=== PATIENT | male | born 1990 | race African-American/Black ===

== ENCOUNTER 2018-09-19 13:36 | Emergency (ER) | payer OTHER ==
[2018-09-19] MEDS: methylPREDNISolone INJ 125 MG/2 ML VIAL (J2930) IV (14:00)
[2018-09-19] MEDS: diphenhydrAMINE INJ 50MG/ML VIAL (J1200) IV (14:00)
[2018-09-19] MEDS: FAMOTIDINE IV BAG 20 MG in APPROPRIATE DILUENT 1 EA IV (14:00)
[2018-09-19] MEDS: ONDANSETRON 4MG/2ML VIAL (J2405) IV (14:04)
[2018-09-19] MEDS: ALBUTEROL SULFATE 2.5 MG/0.5 ML INH NEB SOLN INH (14:10)
== END 2018-09-19 16:49 | disposition home or self-care (01) ==
LOC: M ED 13:36
DX: R22.1 Localized swelling, mass and lump, neck (principal); T61.781A Other shellfish poisoning, accidental (unintentional), initial encounter; Y92.9 Unspecified place or not applicable; Y93.9 Activity, unspecified; Z91.010 Allergy to peanuts
CPT/HCPCS: J1200

== ENCOUNTER 2018-12-06 17:43 | Inpatient (IN) | payer OTHER ==
[~2018-12-06] VITALS: Ht 180.3 cm; Wt 83.9 kg
[~2018-12-06 17:43] MED LIST: BENA25CA4 PO; FAMO40TA3 PO; MEDR4PAK PO; ZOFR4TAB14 PO
[2018-12-06] MEDS ORDERED: ESZO1TAB4 (17:47)
[2018-12-06] MEDS ORDERED: MELA3TAB PO (17:47)
[2018-12-06 18:28] LABS: HEMATOCRIT 45.9 % (42.0-52.0); HEMOGLOBIN 15.2 g/dl (13.5-17.5); MEAN CORPUSCULAR HEMOGLOBIN 26.9 pg (27.0-33.0); MEAN CORPUSCULAR HGB CONC 33.1 g/dl (32.0-36.5); MEAN CORPUSCULAR VOLUME 81.2 fl (80.0-96.0); PLATELET COUNT, AUTOMATED 268 10^3/uL (150-450); RED BLOOD COUNT 5.65 10^6/uL (4.30-6.10)
[2018-12-06 19:09] LABS: ACETAMINOPHEN LEVEL < 2.0 UG/ML (10.0-30.0); ALBUMIN 4.2 GM/DL (3.2-5.2); ALT/SGPT 43 U/L (12-78); BILIRUBIN,DIRECT < 0.1 MG/DL (0.0-0.2); BILIRUBIN,TOTAL 0.2 MG/DL (0.2-1.0); BLOOD UREA NITROGEN 18 MG/DL (7-18); CALCIUM LEVEL 9.1 MG/DL (8.5-10.1); CARBON DIOXIDE LEVEL 31 MEQ/L (21-32); CHLORIDE LEVEL 104 MEQ/L (98-107); CREATININE FOR GFR 0.98 MG/DL (0.70-1.30); ETHYL ALCOHOL (ETHANOL) < 0.003 % (0.000-0.010); GLOMERULAR FILTRATION RATE > 60.0 (>60); GLUCOSE, FASTING 63 MG/DL (70-100); SALICYLATE LEVEL < 1.7 MG/DL (5.0-30.0); SODIUM LEVEL 140 MEQ/L (136-145)
[2018-12-06 19:16] LABS: AMPHETAMINES LEVEL URINE NEGATIVE (NEGATIVE); BARBITURATES URINE NEGATIVE (NEGATIVE); BENZODIAZEPINES URINE NEGATIVE (NEGATIVE); CANNABINOIDS URINE NEGATIVE (NEGATIVE); COCAINE METABOLITE URINE NEGATIVE (NEGATIVE); METHADONE URINE NEGATIVE (NEGATIVE); OPIATES URINE NEGATIVE (NEGATIVE); PHENCYCLIDINE URINE NEGATIVE (NEGATIVE)
[2018-12-06] MEDS ORDERED: ACETAMINOPHEN TAB 650MG DOSE (2X325MG) PO PRN (22:00)
[2018-12-06] MEDS ORDERED: traZODone 50 MG TAB PO PRN (22:00)
[2018-12-06] MEDS ORDERED: MAALOX 30 ML SUSP *UDC PO PRN (22:00)
[2018-12-06] MEDS ORDERED: MOM 30ML SUSPENSION UDC PO PRN (22:00)
[2018-12-06 23:02] VITALS: BP 129/83
[2018-12-07 06:37] VITALS: BP 122/59
--- NOTE | 2018-12-07 09:05 | HPEPDOC ---
[facility] Medical History & Physical Date of Admission Dec 06, 2018 History and Physical PCP: Alisa FELIZC ATTENDING: Dr. Jaqui Choen HPI: 28 yo M admitted to COUNTS INCLUDE 234 BEDS AT THE [facility] for unspecified depressive disorder, being medically examined today. No acute medical complaints today. Denies any fevers, chills, weakness, fatigue, KEENAN, CP, SOB, cough, palpitations, abdominal pain, N/V/D or changes in bowel or bladder habits. 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 ROS: As noted in HPI, otherwise 11pt ROS of systems reviewed and unremarkable. PE: GEN: 28 yo M, appears stated age. Well-nourished, well developed. No acute distress. Alert and oriented x 3. Pleasant, interactive. HEENT: Normocephalic, atraumatic. Pupils are equal, round, and reactive to light. Extraocular movements are intact. No nystagmus appreciated. Sclera are nonicteric. Conjunctiva without injection. Nose midline. Nasal turbinates without bogginess. EACs both patent BL. TMs both visualized and bender with good cone of light, no bulging or erythema. No facial asymmetry. Moist mucous membranes. Dentition fair. Pharynx pink and moist, no cobblestoning. Neck supple, trachea midline. No lymphadenopathy or thyromegaly appreciated. CHEST: Regular rate and rhythm, +S1, +S2 LUNGS: Clear to auscultation bilaterally. No wheezes, rales, or rhonchi. Br eathing appears symmetric and easy. Patient is speaking in full sentences. No accessory muscle use. ABD: Round, soft, non-tender, non-distended. +Bowel sounds throughout. No rebound or guarding. No costovertebral angle tenderness. EXT: Pulses 2+ bilaterally dorsalis pedis and radial. No lower extremity edema appreciated. SKIN: [place], dry, warm. Capillary refill <2sec. No rashes. NEURO: Alert and oriented x 3. Cranial nerves III-XII are intact. No focal deficits appreciated. EKG: Pending A&P: 28 yo M admitted to COUNTS INCLUDE 234 BEDS AT THE [facility] for unspecified depressive disorder 1. Psych. Plan per Psychiatry. Obtain baseline EKG to assure the safety of psychiatric medications as they can prolong the QT interval. 2. Arrange follow up with PCP at discharge. 3. Staff member Jaziel present throughout exam. Vital Signs Vital Signs Date Time Temp Pulse Resp B/P (MAP) Pulse Ox O2 Delivery O2 Flow Rate FiO2 12/07/18 06:37 97.4 73 16 122/59 (80) 12/06/18 23:02 100 Room Air Laboratory Data Labs 24H Laboratory Tests 2 12/06/18 18:18: Nucleated Red Blood Cells % (auto) 0.0, Anion Gap 5L, Glomerular Filtration Rate > 60.0, Calcium Level 9.1, Aspartate Amino Transf (AST/SGOT) 17, Alanine Aminotransferase (ALT/SGPT) 43, Alkaline Phosphatase 58, Total Bilirubin 0.2, Direct Bilirubin < 0.1, Total Protein 8.0, Albumin 4.2, Albumin/Globulin Ratio 1.11, Thyroid Stimulating Hormone (TSH) 1.450, Salicylates Level < 1.7L, Acetaminophen Level < 2.0L, Ethyl Alcohol Level < 0.003 12/06/18 18:23: Urine Amphetamines Screen NEGATIVE, Urine Benzodiazepines Screen NEGATIVE, Urine Opiates Screen NEGATIVE, Urine Methadone Screen NEGATIVE, Urine Barbiturates Screen NEGATIVE, Urine Phencyclidine Screen NEGATIVE, Urine Cocaine Metabolite Screen NEGATIVE, Urine Cannabinoids Screen NEGATIVE 12/06/18 21:09: Bedside Glucose (Misc Panel) 93 CBC/BMP Laboratory Tests 12/06/18 18:18 Red Blood Count 5.65, Mean Corpuscular Volume 81.2, Mean Corpuscular Hemoglobin 26.9 L, Mean Corpuscular Hemoglobin Concent 33.1, Red Cell Distribution Width 13.6 Home Medications Scheduled Melatonin (Melatonin) 3 Mg Tab, 3 MG PO QHS for Allergies Coded Allergies: Peanut (Verified Allergy, Unknown, bety, 09/19/18) Nadira Mcdonough Dec 07, 2018 09:05
[2018-12-07] MEDS ORDERED: SERTRALINE HCL 50 MG TAB PO ONE (14:00)
--- NOTE | 2018-12-07 14:19 | MHHPEPDOC ---
General Date Of Admission: Dec 06, 2018 Legal Status: 9.39 Chief Complaint "My depression starts late at night around 5-6 during the weekends and late at night during the weekdays. 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 PT states since his return his mother had been saying he was more intisocail and that he will often stare off. PT states that he will find himself staring off when he stops at stops signs, during work or at other inconvenient times. He has begun to having short term memory issues and it has been affecting his work. PT states his command has made him work with [facility] for two months but he has not found it beneficial. 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 PT has been experiencing thoughts of not wanting to wake up or not wanting to be alive but denied that he has active SI until a month ago and now he will have thoughts of overdosing. Although he feels he would not act on the thoughts he admits they are progressing and that "the moments I have can be strong" but that in between the moments he feels alright. When the moments occur he feels they are random and can occur anywhere including when he is at work and he will immediate leave the area he is in to be alone and get refocused. PT states he has had terribel sleep since deployment and that although he doesn't remember his dreams he will often wake up sweaty and feeling afraid. PT feels his deployment was fine but then talks of hearing gun fire daily. PT has a significant other in [facility] and they share a 4 month old child. When asked if he experienced flashbacks or hallucinations he speaks of disassociating. 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 class is Prasanna [phone]" Psychiatric Review of Systems Depression (2 or more weeks): depressed mood, anhedonia, insomnia/hypersomnia, feelings of excess/guilt, feelings of worthlesness, decreased energy, difficulty concentrating, appetite changes (Increased), psychomotor changes, suicidal thoughts (Patient reports he has had [id number] thoughts for a couple of years, since he was deployed to [facility]) Divina (4 or more days of): denies Psychosis: denies PTSD: denies Anxiety: gen/non-specific anxiety Anxiety/ 6 months or more of: restlessness, keyed up, easily fatigued, difficulty concentrating, irritability, muscle tension, sleep disturbance Past Psychiatric History Previous Psychiatric Diagnosis: Major Depressive Disorder Previous Psychiatric Admissions: Denies Suicide Attempts: Denies Psychiatric Follow-up: [facility], has an appt on the and another one on the Psychiatric medications: Denies Past Medical History Medical Problems Denies Head Injury: No Seizures: No Hospitalizations: No Surgeries: No Family Medical/Psychiatric HX Medical Problems Denies Psychiatric Disorders: No Addiction: No Suicide Attemps/Completions: No Addiction History alcohol (occasionally) Social History Childhood: "It was fun". He says he grwew up with both parents. he has siblings. He was the second of four children. He enjoyed going to school, denies being bullied, he enjoyed sports. 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 Legal: Denies Marital: Single, has one child, a little girl, 2 months old. He is in touch with the baby's mother. Mental Status Examination General Appearance: well groomed, appears stated age, hospital scubs/clothing Build: average Demeanor: average Eye Contact: average Activity: average Behavior: cooperative Speech: clear, spontaneous, reg/rate,rhythm,volume Mood: depressed Affect: constricted, congruent Thought Process: logical/linear Thought Content (Delusions): none reported Thought Content (Other): none reported Thought Content (Aggressive): none reported Perception (Hallucinations): none reported Perception (Other): none reported Cognition (Impairment of): attention/concentration Cognition(Intelligence Est.): average Oriented: Awake, Alert, Oriented times three Insight: fair Judgment: Fair Psychosis: Denies Diagnoses 1. Major Depressive Disorder, recurrent 2. R/O FRANK Assessment Pt. is cooperative but guarded at the same time, he denies trauma related symptoms but he reports he has been feeling depressed since he came back from [facility], where he was deployed Initial Treatment Plan 1. Patient was admitted on a 9.39 status. 2. Complete history was obtained. 3. With patients permission, family will be contacted and database will be expanded. 4. Patients medication regimen will be reviewed and changed accordingly. 5. Patient will be provided with protected environment. 6. Patient will be treated with individual, group, and milieu therapies. 7. Patient will receive supportive psych-education. 8. Discharge planning will commence immediately. 9. Outpatient follow-up treatment will be strongly recommended. 10. The initial treatment plan will focus initially on: * Depression. * anxiety * Risk for suicide. ESTIMATED LENGTH OF STAY: 5-7 DAYS. TIME SPENT COUNSELING AND COORDINATING INITIAL CARE: 45 minutes. Vital Signs Vital Signs Date Time Temp Pulse Resp B/P (MAP) Pulse Ox O2 Delivery O2 Flow Rate FiO2 12/07/18 06:37 97.4 73 16 122/59 (80) 12/06/18 23:02 100 Room Air Laboratory Data 24H Labs Laboratory Tests 2 12/06/18 18:18: Nucleated Red Blood Cells % (auto) 0.0, Anion Gap 5L, Glomerular Filtration Rate > 60.0, Calcium Level 9.1, Aspartate Amino Transf (AST/SGOT) 17, Alanine Aminot ransferase (ALT/SGPT) 43, Alkaline Phosphatase 58, Total Bilirubin 0.2, Direct Bilirubin < 0.1, Total Protein 8.0, Albumin 4.2, Albumin/Globulin Ratio 1.11, Thyroid Stimulating Hormone (TSH) 1.450, Salicylates Level < 1.7L, Acetaminophen Level < 2.0L, Ethyl Alcohol Level < 0.003 12/06/18 18:23: Urine Amphetamines Screen NEGATIVE, Urine Benzodiazepines Screen NEGATIVE, Urine Opiates Screen NEGATIVE, Urine Methadone Screen NEGATIVE, Urine Barbiturates Screen NEGATIVE, Urine Phencyclidine Screen NEGATIVE, Urine Cocaine Metabolite Screen NEGATIVE, Urine Cannabinoids Screen NEGATIVE 12/06/18 21:09: Bedside Glucose (Misc Panel) 93 CBC/BMP Laboratory Tests 12/06/18 18:18 Red Blood Count 5.65, Mean Corpuscular Volume 81.2, Mean Corpuscular Hemoglobin 26.9 L, Mean Corpuscular Hemoglobin Concent 33.1, Red Cell Distribution Width 13.6 Medications Scheduled Melatonin (Melatonin) 3 Mg Tab, 3 MG PO QHS for , (Reported) Allergies Coded Allergies: Peanut (Verified Allergy, Unknown, bety, 09/19/18) RIGOBERTO ABAD MD Dec 07, 2018 13:56
[2018-12-07 18:00] VITALS: BP 126/89
--- NOTE | 2018-12-07 20:40 | ECGEPIP ---
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 Nonspecific ST abnormalities. No prior ECG available for comparison at the time of interpretation. Electronically Signed On 12-07-2018 20:40:41 EST by Sahil Barros
[2018-12-07] MEDS ORDERED: QUEtiapine FUMARATE 25 MG TAB PO SCH (21:00)
[2018-12-08 06:28] VITALS: BP 130/86
[2018-12-08] MEDS ORDERED: SERTRALINE HCL 50 MG TAB PO SCH (09:00)
[2018-12-08] MEDS ORDERED: QUET1TAB7 PO (12:28)
[2018-12-08] MEDS ORDERED: SERT50TA PO (12:28)
--- NOTE | 2018-12-08 16:56 | MHDSPDOC ---
[facility] Discharge Summary Discharge Summary DATE OF ADMISSION: Dec 06, 2018 at 21:47 DATE OF DISCHARGE: Dec 08, 2018 at 13:15 DISCHARGE DIAGNOSES: 1. Major Depressive Disorder, recurrent 2. R/O FRANK REASON FOR ADMISSION: Chief Complaint "My depression starts late at night around 5-6 during the weekends and late at night during the weekdays. 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 PT states since his return his mother had been saying he was more intisocail and that he will often stare off. PT states that he will find himself staring off when he stops at stops signs, during work or at other inconvenient times. He has begun to having short term memory issues and it has been affecting his work. PT states his command has made him work with [facility] for two months but he has not found it beneficial. 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 PT has been experiencing thoughts of not wanting to wake up or not wanting to be alive but denied that he has active SI until a month ago and now he will have thoughts of overdosing. Although he feels he would not act on the thoughts he admits they are progressing and that "the moments I have can be strong" but that in between the moments he feels alright. When the moments occur he feels they are random an d can occur anywhere including when he is at work and he will immediate leave the area he is in to be alone and get refocused. PT states he has had terribel sleep since deployment and that although he doesn't remember his dreams he will often wake up sweaty and feeling afraid. PT feels his deployment was fine but then talks of hearing gun fire daily. PT has a significant other in [facility] and they share a 4 month old child. When asked if he experienced flashbacks or hallucinations he speaks of disassociating. PT's command is [employer] 1st class is Prasanna [phone]" CONSULTANTS INVOLVED: None TREATMENT AND PROGRESS ON THE UNIT : Patient was pleasant and cooperative. he didn't deny feeling depressed but he said he was not suicidal. 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 Patient dates his symptoms since he came back fro his deployment to [facility], even when he denies PTSD symptoms. Patient agreed to take medications and he denied medications side effects. patient was gal orientated, he says he has his baby girl, a 2 month old girl that he says, is his life and he would never hurt himself because he wants to live to see her grow HOSPITAL COURSE: As above DISCHARGE ASSESSMENT: Patient was not homicidal, not suicidal and not psychotic at the time of his discharge. MENTAL STATUS EXAMINATION ON DISCHARGE: General Appearance: well groomed, appears stated age, hospital scubs/clothing Build: average Demeanor: average Eye Contact: average Activity: average Behavior: cooperative Speech: clear, spontaneous, reg/rate,rhythm,volume Mood: sad Affect: constricted, congruent Thought Process: logical/linear Thought Content (Delusions): none reported Thought Content (Other): Denies SI/HI, denies thought delusions and denies AV hallucinations Thought Content (Aggressive): none reported Perception (Hallucinations): none reported Perception (Other): none reported Cognition (Impairment of): attention/concentration Cognition(Intelligence Est.): average Oriented: Awake, Alert, Oriented times three Insight: improved Judgment: improved Psychosis: Denies Diagnoses 1. Major Depressive Disorder, recurrent 2. R/O FRANK MEDICATIONS ON DISCHARGE: Scheduled Quetiapine Fumerate (Quetiapine Fumarate) 25 Mg Tab, 75 MG PO QHS for insomnia, #21 Sertraline Hcl (Sertraline HCl) 50 Mg Tab, 50 MG PO QAM for depression, #7 PLAN/FOLLOWUP ARRANGEMENTS: Follow Up Care Education Label * Mental Health Appt 1 * Mental Health Akbar Donnelly * Established With This Provider Yes * Therapist Chandler * Follow Up Care Education Label * Mental Health Appt 1 * Mental Health 1st [place] * Date Dec 09, 2018 * Time 10:30 * Additional information BEHAVIORAL HEALTH /ATA ZAIDI [id number] FTR/30 Follow Up Care Education Label * Mental Health Appt 2 * Mental Health 1st Embedded * Date Dec 10, 2018 * Time 09:30 * Additional information IOP/DRUM1 DESTIN WARREN [id number] GRP/120 Follow Up Care Education Label * Mental Health Appt 3 * Mental Health 1st Embedded * Date Dec 10, 2018 * Time 11:45 * Additional information Nursing post hospital f/u- BEHAVIORAL HEALTH CL/DRUM1 JANES NUNES [id number]@1145 FTR/30 The amount of time spent in the coordination of care for this patient was appro ximately 30 minutes. Vital Signs/I&Os Vital Signs Date Time Temp Pulse Resp B/P (MAP) Pulse Ox O2 Delivery O2 Flow Rate FiO2 12/08/18 06:28 98.7 55 16 130/86 (101) 12/06/18 23:02 100 Room Air Medications Scheduled Quetiapine Fumerate (Quetiapine Fumarate) 25 Mg Tab, 75 MG PO QHS for insomnia, #21 Sertraline Hcl (Sertraline HCl) 50 Mg Tab, 50 MG PO QAM for depression, #7 Allergies Coded Allergies: Peanut (Verified Allergy, Unknown, bety, 09/19/18) RIGOBERTO ABAD MD Dec 08, 2018 16:52
== END 2018-12-08 13:15 | disposition home or self-care (01) | DRG 885 ==
LOC: M ED 17:43 → M ED INP 21:47 → M PSY 22:20
PROVIDERS: ADMIT Psychiatry & Neurology Psychiatry; ATTEND Psychiatry & Neurology Psychiatry
DX: F33.9 Major depressive disorder, recurrent, unspecified (principal); R45.851 Suicidal ideations; F41.1 Generalized anxiety disorder; Z91.010 Allergy to peanuts

== ENCOUNTER 2019-02-08 11:30 | Emergency (ER) | payer OTHER ==
[~2019-02-08] VITALS: Ht 177.8 cm; Wt 86.4 kg
[~2019-02-08 11:30] MED LIST changes: +ESZO1TAB4; +MELA3TAB PO; +QUET1TAB7 PO; +SERT50TA PO
[2019-02-08] MEDS ORDERED: BUPR15TA (11:37)
[2019-02-08] MEDS ORDERED: CEPH500C (11:37)
[2019-02-08] MEDS ORDERED: KETOROLAC 30 MG/ML VIAL (J1885) IM ONE (13:00)
[2019-02-08] MEDS ORDERED: IBUP-1022 PO (13:32)
[2019-02-08 13:38] VITALS: BP 138/91
== END 2019-02-08 13:42 | disposition home or self-care (01) ==
LOC: M ED 11:30
DX: G43.709 Chronic migraine without aura, not intractable, without status migrainosus (principal); F43.10 Post-traumatic stress disorder, unspecified; Z79.899 Other long term (current) drug therapy; Z91.013 Allergy to seafood; Z91.010 Allergy to peanuts; Z79.2 Long term (current) use of antibiotics
CPT/HCPCS: 96372; 99283; J1885